=== PATIENT | male | born 1990 | race African-American/Black ===

== ENCOUNTER 2020-03-28 17:09 | Emergency (ER) | payer MEDICAID ==
[~2020-03-28] VITALS: Ht 172.7 cm; Wt 83.0 kg
[2020-03-28] MEDS ORDERED: IBUPROFEN 600MG TABLET PO STA (19:06)
[2020-03-28 21:15] VITALS: BP 147/90
== END 2020-03-28 21:18 | disposition home or self-care (01) ==
LOC: ER 17:09
DX: S46.911A Strain of unspecified muscle, fascia and tendon at shoulder and upper arm level, right arm, initial encounter (principal); W01.0XXA Fall on same level from slipping, tripping and stumbling without subsequent striking against object, initial encounter; Y93.89 Activity, other specified; Y92.89 Other specified places as the place of occurrence of the external cause
CPT/HCPCS: 73030; 99283